=== PATIENT | female | born 1980 | race Caucasian/White ===

== ENCOUNTER 2018-02-13 12:45 | Inpatient (IN) | payer MEDICAID ==
[2018-02-13] MEDS ORDERED: CARBOPROST 250 MCG INJ IM ×2 (13:00→21:30)
[2018-02-13] MEDS ORDERED: OXYTOCIN 30 UNITS/LR 500 ML IV ×2 (13:00)
[2018-02-13] MEDS ORDERED: MISOPROSTOL 200 MCG TAB PR ×2 (13:00→21:30)
[2018-02-13] MEDS ORDERED: METHYLERGONOVINE 0.2 MG INJ IM ×2 (13:00→21:30)
[2018-02-13] MEDS ORDERED: CEFAZOLIN 2 GM/50 ML (PMX) 50 ML IV (13:00)
[2018-02-13] MEDS: LACTATED RINGER'S 1,000 ML IV ×3 (13:19→19:14)
[2018-02-13 13:48] LABS: ADD MAN DIFF? NO
[2018-02-13 13:51] LABS: WHITE BLOOD COUNT 7.4 10^3/ul (4.8-10.8)
[2018-02-13 13:51] LABS: BASOPHILS % 0.3 % (0.0-2.0); EOSINOPHILS % 0.5 % (0.0-7.0); HEMATOCRIT 36.3 % (37.0-47.0); HEMOGLOBIN 11.8 g/dl (12.0-16.0); LYMPHOCYTES # 1.4 10^3/ul (0.8-2.9); LYMPHOCYTES % 18.8 % (15.0-51.0); MEAN CORPUSCULAR HEMOGLOBIN 29.8 pg (29.0-33.0); MEAN CORPUSCULAR HGB CONC 32.5 g/dl (32.0-37.0); MEAN CORPUSCULAR VOLUME 91.7 fl (82.0-101.0); MEAN PLATELET VOLUME 10.1 fl (7.4-10.4); MONOCYTE # 0.7 10^3/ul (0.3-0.9); MONOCYTES % 9.9 % (0.0-11.0); NEUTROPHIL # 5.1 10^3/ul (1.6-7.5); PLATELET COUNT 175 10^3/UL (140-415); RED BLOOD COUNT 3.96 10^6/ul (4.20-5.40); RED CELL DISTRIBUTION WIDTH 14.2 % (11.5-14.5)
[2018-02-13 14:12] LABS: INR 0.89; PARTIAL THROMBOPLASTIN TIME 24.7 Sec (25.0-35.0); PROTIME 12.1 Sec (11.9-14.9); PT RATIO 0.9
[2018-02-13 14:43] LABS: HEPATITIS B SURFACE ANTIGEN NEGATIVE (NEGATIVE)
[2018-02-13 19:06] LABS: RAPID PLASMA REAGIN NONREACTIVE (NR)
[2018-02-13] MEDS ORDERED: morphine SULFATE/PF (10 MG/10 ML) INJ (20:08)
[2018-02-13] MEDS ORDERED: BUPIVACAINE 0.75%/DEXT (SPINAL) 2 ML INJ (20:08)
[2018-02-13] MEDS ORDERED: PHENYLephrine (100 MCG/ML) 5ML SYG (20:28)
[2018-02-13] MEDS ORDERED: DEXAMETHASONE 4 MG/ML 1 ML INJ (20:36)
[2018-02-13] MEDS ORDERED: ONDANSETRON 4 MG INJ (20:36)
[2018-02-13] MEDS ORDERED: NALOXONE (0.4 MG/ML) INJ IV (21:30)
[2018-02-13] MEDS ORDERED: OXYCODONE/ACETAMINOPHEN (5/325) TAB PO ×2 (21:30)
[2018-02-13] MEDS ORDERED: HYDROmorphONE 0.5 MG/0.5 ML SYG IV ×2 (21:30)
[2018-02-13] MEDS ORDERED: ZOLPIDEM 5 MG TAB PO (21:30)
[2018-02-13] MEDS ORDERED: DIPHENHYDRAMINE 50 MG INJ IV (21:30)
[2018-02-13] MEDS: OXYTOCIN 30 UNITS/LR 500 ML IV (21:58)
[2018-02-14] MEDS: ONDANSETRON 4 MG INJ IV (02:17)
[2018-02-14] MEDS: CEFAZOLIN 2 GM/50 ML (PMX) 50 ML IVPB ×3 (05:53→15:06)
[2018-02-14 08:55] LABS: ADD MAN DIFF? NO
[2018-02-14 09:03] LABS: BASOPHILS % 0.1 % (0.0-2.0); HEMATOCRIT 31.9 % (37.0-47.0); HEMOGLOBIN 10.3 g/dl (12.0-16.0); LYMPHOCYTES # 0.9 10^3/ul (0.8-2.9); LYMPHOCYTES % 9.1 % (15.0-51.0); MEAN CORPUSCULAR HEMOGLOBIN 30.2 pg (29.0-33.0); MEAN CORPUSCULAR HGB CONC 32.3 g/dl (32.0-37.0); MEAN CORPUSCULAR VOLUME 93.5 fl (82.0-101.0); MEAN PLATELET VOLUME 10.3 fl (7.4-10.4); MONOCYTE # 0.6 10^3/ul (0.3-0.9); MONOCYTES % 6.2 % (0.0-11.0); NEUTROPHIL # 8.1 10^3/ul (1.6-7.5); NEUTROPHILS % 83.7 % (39.0-77.0); PLATELET COUNT 172 10^3/UL (140-415); RED BLOOD COUNT 3.41 10^6/ul (4.20-5.40)
[2018-02-14 09:03] LABS: WHITE BLOOD COUNT 9.7 10^3/ul (4.8-10.8)
[2018-02-14] MEDS: SENNA/DOCUSATE NA (8.6MG/50MG) TAB PO (09:23)
[2018-02-14] MEDS: OXYTOCIN 30 UNITS/LR 500 ML IV (09:30)
[2018-02-14] MEDS: KETOROLAC 30 MG INJ IV (19:41)
[2018-02-15] MEDS: OXYCODONE/ACETAMINOPHEN (5/325) TAB PO ×2 (00:20→20:41)
[2018-02-15] MEDS: SENNA/DOCUSATE NA (8.6MG/50MG) TAB PO ×3 (00:20→20:41)
[2018-02-15] MEDS: LACTATED RINGER'S 1,000 ML IV ×3 (00:49→07:30)
[2018-02-15] MEDS: IBUPROFEN 600 MG TAB PO ×4 (06:00→17:22)
[2018-02-16] MEDS: IBUPROFEN 600 MG TAB PO ×4 (00:16→18:00)
[2018-02-16] MEDS: SENNA/DOCUSATE NA (8.6MG/50MG) TAB PO (09:46)
[2018-02-16] MEDS: OXYCODONE/ACETAMINOPHEN (5/325) TAB PO (09:46)
== END 2018-02-16 19:00 | disposition home or self-care (01) | DRG 766 ==
LOC: L-D 12:45 → PP1 23:53
PROVIDERS: Obstetrics & Gynecology
PROC: 10D00Z1 Extraction of Products of Conception, Low, Open Approach (ICD-10-PCS; principal; 2018-02-13 20:30)
PROC: 0UL70ZZ Occlusion of Bilateral Fallopian Tubes, Open Approach (ICD-10-PCS; 2018-02-13 20:30)
PROC: 3E033VJ Introduction of Other Hormone into Peripheral Vein, Percutaneous Approach (ICD-10-PCS; 2018-02-13 20:30)
DX: O41.03X0 Oligohydramnios, third trimester, not applicable or unspecified (principal); O32.1XX0 Maternal care for breech presentation, not applicable or unspecified; Z30.2 Encounter for sterilization; Z3A.38 38 weeks gestation of pregnancy; Z37.0 Single live birth
CPT/HCPCS: 85025; 85610; 85730; 86592; 86850; 86900; 86901; 87340; 88302; 99464